=== PATIENT | male | born 1950 | race Caucasian/White ===

== ENCOUNTER 2019-01-10 08:56 | Outpatient (CLI) | payer MEDICARE, OTHER | END 2019-01-10 08:57 | disposition home or self-care (01) | LOC: HLTHCOUN 08:56 ==

== ENCOUNTER 2019-01-24 08:32 | Outpatient (CLI) | payer MEDICARE, OTHER | END 2019-01-24 08:33 | disposition home or self-care (01) | LOC: HLTHCOUN 08:32 | DX: Z71.3 Dietary counseling and surveillance (principal); E11.65 Type 2 diabetes mellitus with hyperglycemia ==

== ENCOUNTER 2019-02-14 08:33 | Outpatient (CLI) | payer MEDICARE, OTHER | END 2019-02-14 08:34 | disposition home or self-care (01) | LOC: HLTHCOUN 08:33 ==